=== PATIENT | female | born 1985 | race Hispanic/Latino ===

== ENCOUNTER 2019-09-30 13:42 | Emergency (ER) | payer OTHER, SELFPAY ==
[2019-09-30 13:50] VITALS: BP 162/102; PULSE 64; RESP 18; TEMP 36.9; O2SAT 100; BMI 34.3
[2019-09-30] MEDS: KETOROLAC 60 MG/2 ML VIAL IM (15:49)
[2019-09-30 16:10] VITALS: BP 158/70; PULSE 62; RESP 18; O2SAT 99
--- NOTE | 2019-09-30 19:11 | ED_ITS ---
HPI - Dental/Oral <ALDEN Finney - Last Filed: 09/30/19 20:40> General Chief complaint: Dental/Oral Stated complaint: left arm/left side of face numbness and pain x1day Time Seen by Provider: 09/30/19 13:54 Source: patient Mode of arrival: Ambulatory Limitations: no limitations History of Present Illness HPI Narrative: The patient is a 34-year-old female nonsmoker with history of p oor dentition who presents with a chief complaint of my filling fell out and pain. She states that a filling on her lower left posterior molar fell out last night. Since then she has had shooting pains from her jaw, and from where the filling came out. She states that she has poor dentition, called her dentist and they have her scheduled for follow-up. She does complain of swelling and pain in that area. She denies any fevers nausea vomiting or diarrhea. She states that she is having electric-like pain from where the filling came out 2-3 days ago. Related Data Previous Rx's Medication Instructions Recorded ketorolac 10 mg PO TID PRN #14 tab 09/30/19 penicillin V potassium 500 mg PO QID #40 tab 09/30/19 Review of Systems <ALDEN Finney - Last Filed: 09/30/19 20:40> Review of Systems Narrative: GENERAL: Denies chills, fatigue, malaise, fever, sweats. HEENT: See HPI RESPIRATORY: Denies dyspnea, cough, wheezing, hemoptysis, sputum. CARDIOVASCULAR: Denies chest pain, palpitations, orthopnea, edema, GASTROINTESTINAL: Denies nausea, vomiting, abdominal pain, diarrhea, constipation, melena. : Denies dysuria, frequency, incontinence, hematuria, urinary retention. MUSCULOSKELETAL: denies weakness, joint pain, or bony pain SKIN: Denies rash, skin lesions, or other NEUROLOGIC: Denies weakness, headache, numbness, change in speech, confusion, seizures, incoordination. PSYCHIATRIC: No concerning psychosocial issues. 12 point review of systems is negative except for those stated above Exam <ALDEN Finney - Last Filed: 09/30/19 20:40> Narrative Exam Narrative: GENERAL: This is a well-nourished, well-developed patient, no acute distress HEAD: Atraumatic. Normocephalic. No temporal or scalp tenderness. EYES: Pupils equal round and reactive. Extraocular motions intact. No scleral icterus. No injection or drainage. ENT: Nose without bleeding, purulent drainage or septal hematoma. Throat without erythema, tonsillar hypertrophy or exudate. Uvula midline. Airway patent. Poor dentition noted. Broken left lower molar, multiple broken teeth left lower jaw. Surrounding erythema and pain to palpation. No palpable abscess. NECK: Trachea midline. No JVD or lymphadenopathy. Supple, nontender, no meningeal signs. CARDIOVASCULAR: Regular rate and rhythm RESPIRATORY: No cough. No increased respiratory effort. No accessory muscle use. No stridor. EXTREMITIES: No clubbing, cyanosis, or edema. No joint tenderness, effusion, or edema noted. BACK: Nontender without deformity or crepitance. No flank tenderness. NEURO: AOx3 strength is equal upper and lower extremities bilaterally. Sensation intact bilateral upper extremities. SKIN: No rash or erythema on visible skin Initial Vital Signs Initial Vital Signs: Vital Signs Temperature 98.4 F 09/30/19 13:50 Pulse Rate 64 09/30/19 13:50 Respiratory Rate 18 09/30/19 13:50 Blood Pressure 162/102 H 09/30/19 13:50 Pulse Oximetry 100 09/30/19 13:50 <Bhumi Rodríguez DO - Last Filed: 10/01/19 07:25> Initial Vital Signs Initial Vital Signs: Vital Signs Temperature 98.4 F 09/30/19 13:50 Pulse Rate 64 09/30/19 13:50 Respiratory Rate 18 09/30/19 13:50 Blood Pressure 162/102 H 09/30/19 13:50 Pulse Oximetry 100 09/30/19 13:50 Course <ALDEN Finney - Last Filed: 09/30/19 20:40> Orders Ordered: Discontinued Medications Ketorolac Tromethamine (Toradol) 60 mg IM NOW ONE Stop: 09/30/19 14:11 Last Admin: 09/30/19 15:49 Dose: 60 mg Documented by: YAEL Vital Signs Vital signs: Vital Signs - 8 hr 09/30/19 13:50 09/30/19 16:10 Temperature 98.4 F Pulse Rate 64 62 Respiratory Rate 18 18 Blood Pressure 162/102 H 158/70 H Pulse Oximetry 100 99 <Bhumi Rodríguez DO - Last Filed: 10/01/19 07:25> Orders Ordered: Discontinued Medications Ketorolac Tromethamine (Toradol) 60 mg IM NOW ONE Stop: 09/30/19 14:11 Last Admin: 09/30/19 15:49 Dose: 60 mg Documented by: YAEL Vital Signs Vital signs: Vital Signs - 8 hr 09/30/19 13:50 09/30/19 16:10 Temperature 98.4 F Pulse Rate 64 62 Respiratory Rate 18 18 Blood Pressure 162/102 H 158/70 H Pulse Oximetry 100 99 MDM - Dental/Oral <Ariana NicholsCHUNG-BC - Last Filed: 09/30/19 20:40> Lab Data Labs: Point of Care Testing Test Results Negative MDM Narrative Medical decision making narrative: The patient is a 34-year-old female who presents with a chief complaint of my filling came out.I discussed that I could not replace her dental filling in the emergency department, but suggested that she follow up with her dentist which she ready as scheduled. She does have signs of an infection, so initiate treatment with penicillin. She was given Toradol in the emergency department and I gave her prescription of Toradol with strict instructions to not combine it with any other NSAIDs. The patient has no questions or concerns upon discharge and states understanding of return precautions as well as follow-up care. Other than her dental exam, her overall exam was benign. She has no evidence of numbness bilateral upper extremities. <Bhumi Rodríguez DO - Last Filed: 10/01/19 07:25> Lab Data Labs: Point of Care Testing Test Results Negative Discharge Plan Departure Patient Disposition: Home Clinical Impression: Dental infection Discharge Date/Time: 09/30/19 16:10 Instructions: DI for Tooth Abscess, DI for Dental Pain Activity Restrictions/Additional Instructions: I have given you a prescription of an antibiotic to treated dental infection. I have given you a prescription of Toradol. This is an NSAID. Do not combine it with other NSAIDs such as Aleve or ibuprofen. I suggest taking it with some food, as it can irritate your stomach. Please use ice. Please follow up with primary care provider as well as your dentist in the next few days. Please come back to the emergency department for any concerns such as inability keep down fluids. Prescriptions: New ketorolac 10 mg tablet 10 mg PO TID PRN (Reason: pain) Qty: 14 RF: 0 penicillin V potassium 500 mg tablet 500 mg PO QID Qty: 40 RF: 0 Referrals: Elizabeth Campa PA-C [Primary Care Provider] - Stand Alone Forms: Work Release Note
== END 2019-09-30 16:10 | disposition home or self-care (01) ==
PROVIDERS: Emergency Provider Nurse Practitioner Family; PCP Physician Assistant Medical
DX: K04.7 Periapical abscess without sinus (principal)
CPT/HCPCS: 81025; 96372; 99282; 99283; J1885

== ENCOUNTER 2021-06-02 17:45 | Emergency (ER) | payer OTHER, SELFPAY ==
[2021-06-02 17:48] VITALS: BP 171/96; PULSE 90; RESP 16; TEMP 36.4; O2SAT 100; BMI 34.3
--- NOTE | 2021-06-02 19:06 | ED.GENADULT ---
HPI - General Adult General Chief complaint: Dental/Oral Stated complaint: TOOTH PULLED SWELLING ON THE LEFT TOP SIDE Time Seen by Provider: 06/02/21 19:03 Source: patient Mode of arrival: Ambulatory Limitations: no limitations History of Present Illness HPI narrative: Patient is a 36-year-old female here for evaluation of swelling to her right upper jaw/facial area. Despite what is stated in the stated complaint the swelling is on the right top side of her face. She did recently have some dental work done. She had a tooth pulled. States that she has known other dental fractures in the area. A couple days ago she started having swelling and a bad taste in her mouth. No problems swallowing. She contacted her dentist however they cannot get her in until later this week. Related Data Previous Rx's Medication Instructions Recorded ketorolac 10 mg tablet 10 mg PO TID PRN #14 tab 09/30/19 penicillin V potassium 500 mg 500 mg PO QID #40 tab 09/30/19 tablet penicillin V potassium 500 mg 500 mg PO QID 7 Days #28 tab 06/02/21 tablet Allergies Allergy/AdvReac Type Severity Reaction Status Date / Time No Known Drug Allergies Allergy Verified 06/02/21 19:33 Review of Systems Constitutional Constitutional: Denies fever(s) ENT Ears, Nose, Mouth, and Throat: Reports as per HPI Respiratory Respiratory: Reports system reviewed and no additional complaints, except as documented Integumentary/Breasts Skin/Breast: Reports system reviewed and no additional complaints, except as documented Neurologic Neurologic: Reports system reviewed and no additional complaints, except as documented Hematologic/Lymphatic On Anticoagulants: No Patient History Social History Smoking Status: Never smoker Smoking Status: Never smoker Substance Use Type: does not use Exam Initial Vital Signs Initial Vital Signs: Vital Signs Temperature 97.6 F 06/02/21 17:48 Pulse Rate 90 06/02/21 17:48 Respiratory Rate 16 06/02/21 17:48 Blood Pressure 171/96 H 06/02/21 17:48 Pulse Oximetry 100 06/02/21 17:48 Const General: cooperative and healthy appearing HENMT Face and sinus: no erythema, edema on the right maxilla and no fluctuance Mouth: tongue normal Teeth and gingiva: caries and poor dentition Throat: posterior oropharynx normal Eyes General: appearance normal, both eyes and all related structures Resp Effort & Inspection: normal respiratory effort Skin General: no rashes or lesions noted Neuro General: patient alert, patient awake and patient oriented x3 Extrem General: normal to inspection Psych Appearance: grossly normal Course Orders Ordered: Discontinued Medications Penicillin V Potassium (Penicillin Vk 250 Mg Tablet) 500 mg PO NOW ONE Stop: 06/02/21 19:08 Last Admin: 06/02/21 19:33 Dose: 500 mg Documented by: ALEC Vital Signs Vital signs: Vital Signs - 8 hr 06/02/21 20:00 Pulse Rate 75 Respiratory Rate 18 Blood Pressure 161/95 H Pulse Oximetry 99 Medical Decision Making MDM Narrative Medical decision making narrative: Patient does have a swelling in the right maxilla area consistent with an infection. She does have poor dentition. There is no definitive abscess seen on her oral exam today that would be amenable to drainage here in the emergency department. Will start her home on antibiotics. She has follow-up later this week artery scheduled with her dentist. She was given return precautions and follow-up instructions. She expressed understanding and agreement. Discharge Plan Departure Patient Disposition: Home Clinical Impression: Dental abscess Instructions: Tooth Abscess Activity Restrictions/Additional Instructions: Take the antibiotics as directed. Keep your scheduled appointment on with her primary doctor. Return to the emergency department for any new or worsening symptoms Prescriptions: New penicillin V potassium 500 mg tablet 500 mg PO QID 7 Days Qty: 28 RF: 0 No Action ketorolac 10 mg tablet 10 mg PO TID PRN (Reason: pain) Qty: 14 RF: 0 penicillin V potassium 500 mg tablet 500 mg PO QID Qty: 40 RF: 0 Referrals: Elizabeth Campa PA-C [Primary Care Provider] -
[2021-06-02] MEDS: PENICILLIN VK 250 MG TABLET 500 MG PO (19:33)
[2021-06-02 20:00] VITALS: BP 161/95; PULSE 75; RESP 18; O2SAT 99
== END 2021-06-02 19:55 | disposition home or self-care (01) ==
PROVIDERS: Emergency Provider Emergency Medicine; PCP Physician Assistant Medical
DX: K04.7 Periapical abscess without sinus (principal)
CPT/HCPCS: 99283

== ENCOUNTER 2022-03-25 21:08 | Observation (INO) | payer OTHER, SELFPAY ==
[2022-03-25 22:30] LABS: Appearance Urine UA CLEAR; Bilirubin Urine UA NEGATIVE (NEGATIVE); Color Urine UA YELLOW; Glucose Urine UA NEGATIVE (Negative); Ketones Urine UA NEGATIVE (NEGATIVE); Leukocyte Esterase Urine UA NEGATIVE (NEGATIVE); Nitrite Urine UA NEGATIVE (Negative); Occult Blood Urine UA TRACE-LYSED (Negative); Protein Urine UA TRACE (Negative); Urobilinogen Urine UA 0.2 E.U./dL (0.2)
[2022-03-25 22:31] LABS: pH Urine UA 6.5 (4.5-8.0)
[2022-03-25 22:36] LABS: Hematocrit 33.2 % (36-46); Mean Corpuscular HGB Conc 33.1 % (30-36); Mean Corpuscular Hemoglobin 25.9 PG (26-34); Mean Corpuscular Volume 78.4 fL (80-100); Platelet Count 403 X10^3/uL (150-400); Red Blood Cell Count 4.24 X10^6/uL (4.0-5.2); Red Cell Distribution Width 15.1 % (11.6-14.8); White Blood Cell Count 8.8 X10^3/uL (4.5-11.0)
[2022-03-25 22:37] VITALS: BP 152/73; PULSE 100
[2022-03-25] MEDS: LABETALOL 100 MG TABLET 200 MG PO (22:37)
[2022-03-25 22:40] LABS: Alanine Aminotransferase 13 IU/L (<35); Albumin 3.8 g/dL (3.5-5.0); Albumin Globulin Ratio 1.1 (1.0-2.8); Alkaline Phosphatase 68 U/L (38-126); Aspartate Aminotransferase 20 IU/L (14-36); BUN Creatinine Ratio 6.8 (6-22); Bilirubin Total 0.3 mg/dL (0.2-1.3); Blood Urea Nitrogen 4 mg/dL (7-17); Carbon Dioxide 26 mmol/L (22-32); Chloride 104 mmol/L (98-107); Estimated Glomerular Filt Rate > 60 mL/min (>60); Globulin 3.6 g/dL (1.7-4.1); Glucose 133 mg/dL (70-100); HEMOLYSIS < 15 (0-50); Potassium 3.5 mmol/L (3.4-5.1); Sodium 138 mmol/L (137-145); Total Protein 7.4 g/dL (6.3-8.2); Uric Acid 2.6 mg/dL (2.5-6.2)
[2022-03-25 22:43] LABS: Bacteria Urine Few (2-10); Culture Indicated Urine Cult Not Indicated; RBC Urine None Seen (0-5/HPF); Squamous Epithelial Cell Urine 1-5 /HPF (0-5/HPF); WBC Urine None Seen (0-5/HPF)
[2022-03-25 22:46] LABS: Creatinine Urine Random 100.2 mg/dL; Protein (Total) Urine Random 21 mg/dL (0-12)
== END 2022-03-25 23:31 | disposition home or self-care (01) ==
PROVIDERS: Admitting Provider Obstetrics & Gynecology; PCP Physician Assistant Medical; Referring Provider Obstetrics & Gynecology; Visit Provider Obstetrics & Gynecology
DX: O36.8130 Decreased fetal movements, third trimester, not applicable or unspecified (principal); Z3A.28 28 weeks gestation of pregnancy
CPT/HCPCS: 36415; 59025; 59050; 80053; 81001; 82570; 84156; 84550; 85027; G0378; G0379

== ENCOUNTER 2023-12-03 15:08 | Emergency (ER) | payer OTHER, SELFPAY ==
[2023-12-03 15:14] VITALS: BP 173/98; PULSE 98; RESP 18; TEMP 37.1; O2SAT 98; BMI 36.3
--- NOTE | 2023-12-03 15:21 | DI.RAD.S_ITS ---
PROCEDURE: XR SHOULDER LT MIN 2V INDICATIONS: left shoulder pain TECHNIQUE: 3 views of the shoulder were acquired. COMPARISON: None. FINDINGS: Bones: No fractures or dislocations. No suspicious bony lesions. Visualized ribs appear intact. Soft tissues: No suspicious soft tissue calcifications. IMPRESSION: No acute bony abnormality. Dictated by: Giancarlo Combs M.D. on 12/03/2023 at 16:00 Approved by: Giancarlo Combs M.D. on 12/03/2023 at 16:03
[2023-12-03 16:35] VITALS: PULSE 76; RESP 18; O2SAT 99
--- NOTE | 2023-12-03 16:48 | ED_ITS ---
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 Yesterday morning her left shoulder started to hurt and by afternoon it was excruciating. She could not lift her arm. Overnight she took Tylenol 1000 mg and again this morning but the pain was so severe she could not go to work. She does not recall any specific incident nor did she feel a pop or have any trauma. She has no history of injury to that shoulder. She denies numbness or tingling in her hand. Related Data Allergies Allergy/AdvReac Type Severity Reaction Status Date / Time No Known Drug Allergies Allergy Verified 06/02/21 19:33 Review of Systems <Emma Xiong PA-C - Last Filed: 12/03/23 16:53> Review of Systems ROS Unobtainable: All systems reviewed & are unremarkable except as noted in HPI and below Patient History <Emma Xiong PA-C - Last Filed: 12/03/23 16:53> Social History Smoking Status: Never smoker Smoking Status: Never smoker Substance Use Type: does not use Exam <Emma Xiong PA-C - Last Filed: 12/03/23 16:53> Narrative Exam Narrative: GENERAL: 38 year old patient appears stated age. Well-developed patient, in no acute distress. NEURO: AOx3. HEAD: Atraumatic. Normocephalic. EYES: Pupils equal round and reactive. Extraocular motions intact. No scleral icterus. No injection or drainage. ENT: Nose without bleeding or purulent drainage. Airway patent. RESPIRATORY: No increased work of breathing EXTREMITIES: Left arm in sling from triage. Exquisite point tenderness over the lateral aspect of the left shoulder, more diffuse tenderness on the anterior and posterior aspects. Abduction severely limited by pain. 2 second capillary refill in left upper extremity, strong radial pulse, good strength and sensation in her head. SKIN: No rash or erythema of visible areas Initial Vital Signs Initial Vital Signs: Vital Signs Temperature 98.8 F 12/03/23 15:14 Pulse Rate 98 H 12/03/23 15:14 Respiratory Rate 18 12/03/23 15:14 Blood Pressure 173/98 H 12/03/23 15:14 Pulse Oximetry 98 12/03/23 15:14 Oxygen Delivery Method Room Air 12/03/23 15:14 <Bhumi Rodríguez DO - Last Filed: 12/06/23 01:44> Initial Vital Signs Initial Vital Signs: Vital Signs Temperature 98.8 F 12/03/23 15:14 Pulse Rate 98 H 12/03/23 15:14 Respiratory Rate 18 12/03/23 15:14 Blood Pressure 173/98 H 12/03/23 15:14 Pulse Oximetry 98 12/03/23 15:14 Oxygen Delivery Method Room Air 12/03/23 15:14 Course <Emma Xiong PA-C - Last Filed: 12/03/23 16:53> Orders Ordered: ED Orders 12/03/23 15:21 XR shoulder LT min 2V Stat Vital Signs Vital signs: Vital Signs - 8 hr 12/03/23 15:14 Temperature 98.8 F Pulse Rate 98 H Respiratory Rate 18 Blood Pressure 173/98 H Pulse Oximetry 98 Oxygen Delivery Method Room Air <Bhumi Rodríguez DO - Last Filed: 12/06/23 01:44> Orders Ordered: ED Orders 12/03/23 15:21 XR shoulder LT min 2V Stat Vital Signs Vital signs: Vital Signs - 8 hr 12/03/23 15:14 Temperature 98.8 F Pulse Rate 98 H Respiratory Rate 18 Blood Pressure 173/98 H Pulse Oximetry 98 Oxygen Delivery Method Room Air MDM - Extremity Injury (Upper) <MIKE Calles Last Filed: 12/03/23 16:53> Imaging Data Extremity x-ray #1: Radiologist's Impression: PROCEDURE: XR SHOULDER LT MIN 2V INDICATIONS: left shoulder pain TECHNIQUE: 3 views of the shoulder were acquired. COMPARISON: None. FINDINGS: Bones: No fractures or dislocations. No suspicious bony lesions. Visualized ribs appear intact. Soft tissues: No suspicious soft tissue calcifications. IMPRESSION: No acute bony abnormality. Dictated by: Giancarlo Combs M.D. on 12/03/2023 at 16:00 Approved by: Giancarlo Combs M.D. on 12/03/2023 at 16:03 [facility] Narrative Medical decision making narrative: Multiple etiologies for patient's symptoms considered including, but not limited to: Fracture, dislocation, osteoarthritis, soft tissue injury No bony fracture or dislocation on x-ray. Suspect soft tissue injury of the left shoulder, possibly related to repetitive stress. Discussed management with the patient to include rest, ice, NSAIDs and referral to Orthopedics for repeat and further evaluation. Referral to physical therapy may be indicated, we will defer to Orthopedics. L&I paperwork completed. Patient's symptoms improved over duration of stay with above-stated therapies. Findings and discharge diagnosis discussed with patient/family followed by verbalization of understanding Return precautions discussed with patient/family whom verbalize understanding of diagnosis and plan Discharge Plan Departure Patient Disposition: Home Clinical Impression: Derangement of left shoulder joint Instructions: DI for Shoulder Sprain Activity Restrictions/Additional Instructions: *You have been diagnosed with shoulder sprain, left. You are advised to use - rest. take it easy and listen to your body! - ice. apply ice for 20 minutes every 1-2 hours while awake. Do not put ice directly on the skin. - you may wear the sling for support when you are walking but please take it off multiple times per day and do shoulder circles with your arm hanging. Keeping your arm immobile can worsen your pain and disability. -take ibuprofen 600 mg q.6 hours with food for at least 72 hours, then as needed for pain. -please call the orthopedist (information below) to set up a follow up appointment in the next week. -please establish with a primary care provider who can help manage your return to work. *What to do: *Please continue to take your regular medications as directed. [ ] New medication prescriptions sent to your pharmacy: [ ] [ ] New medication written as a paper prescription [x] No new medications given *Please follow up with your primary care provider in 2-3 days, call for an appointment. Let them know you were seen in the Emergency Department and that we ask that you be seen in follow up. We will electronically transmit a record of today's note if your PCP is in our system *If you do not have a primary care provider please contact the [facility] Resource line at [phone]. They will ask some questions about your medical history and help get you set up with a doctor in the community. *Return to Emergency Department if you should have any new, worsening or concerning symptoms, such as [fever greater than 101 F, shaking chills, worsening pain, persistent vomiting or other concerning symptoms]. Prescriptions: Discontinued ketorolac 10 mg tablet 10 mg PO TID PRN (Reason: pain) Qty: 14 0RF penicillin V potassium 500 mg tablet 500 mg PO QID Qty: 40 0RF Referrals: [facility] [Provider Group] Elizabeth Campa PA-C [Primary Care Provider] - Stand Alone Forms: Patient Portal/API ED Sign-out <Bhumi Rodríguez DO - Last Filed: 12/06/23 01:44> Cosign ED Attending Cosceasarature Attestation: I was available for consultation.
== END 2023-12-03 16:35 | disposition home or self-care (01) ==
PROVIDERS: Emergency Provider Physician Assistant; PCP Physician Assistant Medical
DX: S49.92XA Unspecified injury of left shoulder and upper arm, initial encounter (principal); X58.XXXA Exposure to other specified factors, initial encounter
CPT/HCPCS: 73030; 99281; 99283

== ENCOUNTER 2024-07-13 19:37 | Emergency (ER) | payer OTHER, SELFPAY ==
[2024-07-13 19:47] VITALS: BP 197/94; PULSE 100; RESP 20; TEMP 36.8; O2SAT 100; BMI 34.3
--- NOTE | 2024-07-13 19:56 | DI.RAD.S_ITS ---
PROCEDURE: XR FINGER LT MIN 2V INDICATIONS: crushed in gear at work TECHNIQUE: AP hand, 2 views of the 2nd finger(s) acquired. COMPARISON: None. FINDINGS: Bones: Probable nondisplaced crush fracture of the 2nd distal phalanx tuft. Bones are in normal alignment. No suspicious bone lesions. Soft tissues: There is soft tissue irregularity over the volar aspect of 2nd distal phalanx and trace soft tissue gas projects ventral to the distal phalanx. No radiodense foreign body. IMPRESSION: Probable nondisplaced 2nd tuft fracture. Trace subcutaneous gas but no evidence of foreign body. This should be treated as an open fracture. Dictated by: Viki Vazquez M.D. on 07/13/2024 at 21:06 Approved by: Viki Vazquez M.D. on 07/13/2024 at 21:08
--- NOTE | 2024-07-13 21:26 | ED_ITS ---
HPI - Extremity Injury (Upper) General Chief Complaint: Extremity Injury, Upper Stated Complaint: L Index Finger Crushed Time Seen by Provider: 07/13/24 20:26 Source: patient Mode of arrival: Ambulatory History of Present Illness HPI narrative: 39-year-old female presents for left index finger injury. Patient states that at work her left index finger got caught in years and was crushed. Uncertain when last tetanus shot was administered. Related Data Previous Rx's Medication Instructions Recorded amoxicillin 875 mg-potassium 1 tab PO Q12H #14 tabs 07/13/24 clavulanate 125 mg tablet Allergies Allergy/AdvReac Type Severity Reaction Status Date / Time No Known Drug Allergies Allergy Verified 06/02/21 19:33 Patient History Social History Smoking Status: Never smoker Smoking Status: Never smoker alcohol intake frequency: 0-2 drinks per day Substance Use Type: does not use Exam Initial Vital Signs Initial Vital Signs: Vital Signs Temperature 98.2 F 07/13/24 19:47 Pulse Rate 100 H 07/13/24 19:47 Respiratory Rate 20 07/13/24 19:47 Blood Pressure 197/94 H 07/13/24 19:47 Pulse Oximetry 100 07/13/24 19:47 Oxygen Delivery Method Room Air 07/13/24 19:47 Const: Awake, alert, no acute distress, nontoxic appearing MSK: full ROM of all fingers, no nailbed involvement Skin: Warm, Dry, 3cm irregular laceration volar L index finger to tip Neuro: AO x3, CN II-XII grossly intact, moves all extremities Procedures Laceration Repair Laceration 1: Site: hand Side (If applicable): left Size (cm): 3 Description: stellate, irregular and clean Depth: simple, single layer Local Anesthetic: lidocaine 1% (digital block) and with epi Amount of anesthesia used (mL): 5 Pre-repair: wound explored, irrigated extensively and deep structures intact Skin layer closed with: nylon Skin layer suture size: 5-0 Number of sutures: 9 Course Orders Ordered: ED Orders 07/13/24 19:56 XR finger LT min 2V Stat Discontinued Medications Hydrocodone Bitart/Acetaminophen (Hydrocodone/Acet 5/325 Prepack) 1 bottle MISC DIRECTED ONE Stop: 07/13/24 22:05 Last Admin: 07/13/24 22:14 Dose: 1 bottle Documented By: JASPREET Diphtheria/Tetanus/Acell Pertussis (Tet,Diph,Pertuss(Acell),Vac/Pf 0.5 Ml Syringe) 0.5 ml IM .ONCE ONE Stop: 07/13/24 22:05 Last Admin: 07/13/24 22:15 Dose: 0.5 ml Documented By: JASPREET Vital Signs Vital signs: Vital Signs - 8 hr 07/13/24 22:24 Pulse Rate 70 Respiratory Rate 18 Blood Pressure 182/96 H Pulse Oximetry 100 Oxygen Delivery Method Room Air MDM - Extremity Injury (Upper) Imaging Data Extremity x-ray #1: Radiologist's Impression: PROCEDURE: XR FINGER LT MIN 2V INDICATIONS: crushed in gear at work TECHNIQUE: AP hand, 2 views of the 2nd finger(s) acquired. COMPARISON: None. FINDINGS: Bones: Probable nondisplaced crush fracture of the 2nd distal phalanx tuft. Bones are in normal alignment. No suspicious bone lesions. Soft tissues: There is soft tissue irregularity over the volar aspect of 2nd distal phalanx and trace soft tissue gas projects ventral to the distal phalanx. No radiodense foreign body. IMPRESSION: Probable nondisplaced 2nd tuft fracture. Trace subcutaneous gas but no evidence of foreign body. This should be treated as an open fracture. Dictated by: Viki Vazquez M.D. on 07/13/2024 at 21:06 Approved by: Viki Vazquez M.D. on 07/13/2024 at 21:08 [facility] Narrative Medical decision making narrative: Crush injury to left index finger. Neurovascularly intact, tendon function normal. X-ray imaging shows nondisplaced 2nd tuft fracture. With overlying laceration considered open. Wound irrigated extensively, repaired per procedure note. Tetanus updated in the emergency department, patient placed on Augmentin as precaution. L and I paperwork filled out, note for work provided Discharge Plan Departure Patient Disposition: Home Clinical Impression: Open fracture of tuft of distal phalanx of finger, Finger laceration Instructions: DI for Finger Fracture Activity Restrictions/Additional Instructions: You have a tuft fracture of your index finger. This should heal on its own. Wear the splint on your finger for the next week to help protect your finger. The sutures will need to be removed in the next 5-7 days. Keep your finger clean and dry. 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 Wear gloves when using your hands. Antibiotics have been sent to your pharmacy. Prescriptions: New amoxicillin-pot clavulanate 875-125 mg tablet 1 tab PO Q12H Qty: 14 0RF Referrals: Elizabeth Campa PA-C [Primary Care Provider] - Stand Alone Forms: Patient Portal/API, Work Release Note
[2024-07-13] MEDS: HYDROCODONE/ACET 5/325 PREPACK 1 BOTTLE MISC (22:14)
[2024-07-13] MEDS: TET,DIPH,PERTUSS(ACELL),VAC/PF 0.5 ML SYRINGE IM (22:15)
[2024-07-13 22:24] VITALS: BP 182/96; PULSE 70; RESP 18; O2SAT 100
== END 2024-07-13 22:25 | disposition home or self-care (01) ==
PROVIDERS: Emergency Provider Emergency Medicine; PCP Physician Assistant Medical
DX: S62.661A Nondisplaced fracture of distal phalanx of left index finger, initial encounter for closed fracture (principal); S61.211A Laceration without foreign body of left index finger without damage to nail, initial encounter; W23.0XXA Caught, crushed, jammed, or pinched between moving objects, initial encounter; Z23 Encounter for immunization
CPT/HCPCS: 12002; 73140; 90471; 99283; 90715